=== PATIENT | female | born 1965 | race Caucasian/White ===

== ENCOUNTER 2020-05-04 22:44 | Emergency (ER) | payer MEDICARE, OTHER ==
[~2020-05-04] VITALS: Ht 165.1 cm; Wt 97.0 kg
--- NOTE | 2020-05-04 22:50 | PHYS DOC ---
Past History Past Medical History: Anxiety, Arthritis, COPD, Fibromyalgia, Other Past Medical History MS, neuropathic pain, peripheral neuropathy Past Surgical History: Smoking: Cigarettes Alcohol Use: None Drug Use: None General Adult HPI: HPI: ".. She said she was feeling like she had a fever yesterday...but to night.. we heard at thump.. and she was on the floor.. She would not say what hurts.. just keep yelling.." ".. She had problems with her MS.. it been getting worse the last three years.. ( ) Patient is a 54 year old female who presents with hx fell out of bed reportedly prior arrival. Pt. mental status change since fall. Yelling, thrashing on the cot. Patient had left temporal contusion. The patient required restraints and eventual sedation and intubation for CT evaluation. Patient has history of MS and has had progressive deterioration. Patient history of gait problems secondary to MS, severe peripheral neuropath. Patient has had issues with urinary retention and overflow incontinence. Patient does smoke. Has history of chronic pain and narcotic dependent. Patient has also past history of Lyme disease. The patient normally follows with Dr. Eileen Crowley. Review of Systems: Review of Systems: Review of systems limited due to patient's mental status Constitutional: History of fever or chills Musculoskeletal: History of chronic pain and gait disorder Neurologic: Hx. chronic neuropathic pain secondary to MS Psychiatric: Hx. depression or anxiety Family History: Family History: Noncontributory to presentation Current Medications: Current Meds: See nursing for home meds Allergies: Allergies: Allergies Coded Allergies Type Severity Reaction Last Updated Verified amoxicillin Allergy Intermediate Rash 07/30/14 Yes Physical Exam: PE: Constitutional: in acute distress, HENT: Normocephalic, contusion left side of forehead, bilateral external ears normal, oropharynx moist, no oral exudates, nose rhinorrhea Eyes: PERRLA, EOMI, conjunctiva mild injection, no discharge. [] Neck: . Trachea midline Cardiovascular: Tachycardia heart rate regular rhythm, PMI to the left Lungs & Thorax: Bilateral breath sounds equal apex with rhonchi and crackles on auscultation [] Abdomen: Bowel sounds decreased, distended, old pelvic surgery scar Skin: Warm, diaphoretic, no erythema, no rash. [] Extremities: Moving all extremities kicking or thrashing, ankle edema. [] Neurologic: Withdraws to noxious stimuli. Appears to be moving all extremities. Yelling. Garbled speech and grunts EKG: EKG: My interpretation of EKG 76 bpm. No findings acute STEMI of contralateral changes [] Radiology/Procedures: Radiology/Procedures: IMAGING REPORT Signed PATIENT: KAREEM KENNEDY: [id number] : 1965 LOCATION: ER AGE: 54 SEX: F EXAM STATUS: REG ER ORD. PHYSICIAN: BRANDON BLOCK MD REASON: dyspnea PROCEDURE: PORTABLE CHEST 1V Study: CR PORTABLE CHEST 1V Indication: Dyspnea. Comparison: None. Findings: Endotracheal tube tip terminates 2 to 3 cm above the emily. Enteric tube tip is within the stomach. The sidehole is approximately 2 cm above the diaphragm. Upper limits of normal cardiomediastinal silhouette though accentuated by AP technique. No overt central vascular congestion. No lobar consolidation, large effusion or pneumothorax. Bilateral breast implants. Impression: 1. Endotracheal tube tip 2 to 3 cm above the emily. Enteric tube tip is within the stomach but the sidehole is within the esophagus approximately 2 cm above the diaphragm. 2. No findings of an organizing pneumonia or overt CHF/volume overload. Electronically signed by: HERON LAYNE MD (05/05/2020 12:51 AM) [id number] DICTATED AND SIGNED BY: HERON LAYNE MD DATE: 05/05/20 005 CC: BRANDON BLOCK MD; LEONELA CARBONE ~ [][place] [id number] IMAGING REPORT Signed PATIENT: KAREEM KENNEDY: [id number] : 1965 LOCATION: ER AGE: 54 SEX: F EXAM STATUS: REG ER ORD. PHYSICIAN: BRANDON BLOCK MD REASON: fALL,HEAD CONTUSION AND MENTAL STATUS CHANGE PROCEDURE: CT HEAD AND CERVICAL SPINE WO STUDY: CT head and cervical spine without contrast INDICATION: Fall. Head contusion. Mental status change. COMPARISON: None. TECHNIQUE: Axial CT imaging through the head and cervical spine without the use of intravenous contrast. Sagittal and coronal reformats were obtained. One or more of the following individualized dose reduction techniques were utilized for this examination: 1. Automated exposure control 2. Adjustment of the mA and/or kV according to patient size 3. Use of iterative reconstruction technique. FINDINGS: CT head: No acute intracranial hemorrhage. Horton-white matter differentiation is maintained. No localized mass effect, midline shift or hydrocephalus. Nonspecific patchy hypoattenuation within the bihemispheric subcortical white matter, best appreciated within both frontal lobes such as on image 19 series 2. No depressed calvarial fracture. No hemorrhage within the paranasal sinuses or mastoid air cells. CT cervical spine: No acute fracture or traumatic malalignment. Degenerative changes at the atlantodental interface. Discogenic arthrosis greatest at C5-C6. No severe osseous central canal or neural foraminal stenosis. No soft tissue sequela of trauma seen throughout the chest. Endotracheal and orogastric intubation. No apical pneumothorax. IMPRESSION: CT head: 1. No acute intracranial abnormality by CT. 2. Mild patchy low-attenuation within the bihemispheric subcortical white matter is nonspecific but most frequently on account of chronic microvascular ischemic change. 3. In the setting of intubation, if there is failure to improve clinically MRI could be performed to better evaluate for any pathology occult by CT. CT cervical spine: 1. No acute fracture or traumatic malalignment. 2. Scattered degenerative changes without severe osseous central canal or neural foraminal stenosis. Electronically signed by: HERON LAYNE MD (05/05/2020 2:15 AM) [id number] DICTATED AND SIGNED BY: HERON LAYNE MD DATE: 05/05/20 0215 CC: BRANDON BLOCK MD; LEONELA CARBONE ~ Heart Score: HEART Score for Chest Pain: HEART Score for Chest Pain Response (Comments) Value History Slighlty/Non-Suspicious 0 ECG Normal 0 Age >45 - < 65 1 Risk Factors 1 or 2 Risk Factors 1 Troponin < Normal Limit 0 Total 2 Risk Factors: Risk Factors: DM, Current or recent (<one month) smoker, HTN, HLP, family history of CAD, obesity. Risk Scores: Score 0 - 3: 2.5% MACE over next 6 weeks - Discharge Home Score 4 - 6: 20.3% MACE over next 6 weeks - Admit for Clinical Observation Score 7 - 10: 72.7% MACE over next 6 weeks - Early Invasive Strategies Course & Med Decision Making: Course & Med Decision Making Pertinent Labs and Imaging studies reviewed. (See chart for details) Critical Care 90 min. Procedure Note: Intubation-patient's sedated with Versed 2 mg, 100mg lidocaine, succinylcholine 100 mg and propofol titrated. Use glide scope 7.0 ET placed 22 cm at teeth. CO2 change. No breath sounds over stomach. Breath sounds equal at apex. Tube secured. OG then placed to decompress stomach. Vent titration for sats and reduction in CO2. OG reposition lower after CXR. Central line- Attempt x 2 Rt femoral-. Sterile technique.-Unable to pass to line over wire. Attempts x2. I/O-placed right humeral head-after Betadine prep. For emergent IV access Calls to multiple hospitals no beds currently available at [facility] , [facility], , at [facility]. Bed became available at [facility]- Report given to Dr. Guzman. However- ICU bed taken by another pt. prior to transport. Bed became available at [facility]- Report given to SUNDAY Mims, pt. accepted to Dr. Sheridan service. Pt. awaiting transport- at shift change. Pt. endorsed to Dr. Ramirez pending transfer. Impression: 1. Hx. Fall 2. Acute Mental Status Change 3. Hx. MS 4. Respiratory Failure- Hypercarbia 5. SIRs vs Sepsis 6. Leukocytosis 27.8 7. Hypernatreia 150 8. Dehydration Bun 23/creat. 2.3 9. DM - glu 198 10. Elevated D-Dimer 1.75 11.Hx Chronic Pain- Narcotic dependent 12. UTI [Pt. endorse to Dr. Ramirez pending transfer to [facility]] Gerda Disclaimer: Gerda Disclaimer: This electronic medical record was generated, in whole or in part, using a voice recognition dictation system. Departure Departure: Referrals: LEONELA CARBONE (PCP) Gerda Disclaimer This chart was dictated in whole or in part using Voice Recognition software in a busy, high-work load, and often noisy Emergency Department environment. It may contain unintended and wholly unrecognized errors or omissions. Gerda Disclaimer This chart was dictated in whole or in part using Voice Recognition software in a busy, high-work load, and often noisy Emergency Department environment. It may contain unintended and wholly unrecognized errors or omissions. BRANDON BLOCK MD May 04, 2020 22:49
[2020-05-04] MEDS ORDERED: MIDAZOLAM HCL PF 5 MG/5 ML VIAL. ONE (23:03)
[2020-05-04] MEDS ORDERED: diphenhydrAMINE 50 MG/ML VIAL IV ONE (23:30)
[2020-05-04] MEDS ORDERED: OLANZapine IM 10 MG VIAL. IM ONE (23:30)
[2020-05-04] MEDS ORDERED: MIDAZOLAM HCL PF 5 MG/5 ML VIAL. IV ONE (23:30)
[2020-05-04] MEDS ORDERED: IV RINGERS SOLUTION,LACTATED 1,000 ML IV SCH (23:30)
[2020-05-04 23:34] LABS: BASO # 0.2 x10^3/uL (0.0-0.2); BASO % 1 % (0-3); EOS # 0.8 x10^3/uL (0.0-0.7); EOS % 3 % (0-3); HEMATOCRIT 45.5 % (36.0-47.0); HEMOGLOBIN 14.7 g/dL (12.0-15.5); LYMPH # 10.5 x10^3/uL (1.0-4.8); LYMPH % 38 % (24-48); MEAN CORPUSCULAR HEMOGLOBIN 36 pg (25-35); MEAN CORPUSCULAR HGB CONC 32 g/dL (31-37); MEAN CORPUSCULAR VOLUME 110 fL (79-100); MONO # 2.1 x10^3/uL (0.0-1.1); MONO % 7 % (0-9); NEUT # 14.3 x10^3uL (1.8-7.7); NEUT % 51 % (31-73); PLATELET COUNT 320 x10^3/uL (140-400); RED BLOOD COUNT 4.15 x10^6/uL (3.50-5.40); RED CELL DISTRIBUTION WIDTH 16.4 % (11.5-14.5); WHITE BLOOD COUNT 27.8 x10^3/uL (4.0-11.0)
[2020-05-04 23:39] LABS: CALCIUM 9.5 mg/dL (8.5-10.1); CREATININE 2.3 mg/dL (0.6-1.0); GFR 22.1; POTASSIUM 4.2 mmol/L (3.5-5.1)
[2020-05-04] MEDS ORDERED: PROPOFOL 100 ML IV ONE (23:40)
[2020-05-04 23:51] LABS: ALBUMIN 4.2 g/dL (3.4-5.0); C REACTIVE PROTEIN 9.3 mg/L (0-3.3); DIRECT BILIRUBIN 0.3 mg/dL (0.0-0.2); MAGNESIUM 2.2 mg/dL (1.8-2.4); TOTAL BILIRUBIN 0.6 mg/dL (0.2-1.0); TOTAL PROTEIN 7.9 g/dL (6.4-8.2)
[2020-05-05 00:01] LABS: % BANDS 7 % (0-9); % EOS 1 % (0-5); % LYMPHS 43 % (24-48); % MONOS 4 % (0-10); % SEGS 45 % (35-66); PLT ESTIMATE ADEQUATE (ADEQUATE)
[2020-05-05] MEDS ORDERED: SUCCINYLCHOLINE 200 MG/10 ML VIAL. ONE (00:08)
--- NOTE | 2020-05-05 00:54 | RAD ---
Study: CR PORTABLE CHEST 1V Indication: Dyspnea. Comparison: None. Findings: Endotracheal tube tip terminates 2 to 3 cm above the emily. Enteric tube tip is within the stomach. The sidehole is approximately 2 cm above the diaphragm. Upper limits of normal cardiomediastinal silhouette though accentuated by AP technique. No overt central vascular congestion. No lobar consolidation, large effusion or pneumothorax. Bilateral breast implants. Impression: 1. Endotracheal tube tip 2 to 3 cm above the emily. Enteric tube tip is within the stomach but the sidehole is within the esophagus approximately 2 cm above the diaphragm. 2. No findings of an organizing pneumonia or overt CHF/volume overload. Electronically signed by: HERON LAYNE MD (05/05/2020 12:51 AM) [id number]
[2020-05-05] MEDS ORDERED: methylPREDNISolone SOD SUCC PF 125 MG/2 ML VIAL. IV ONE (01:30)
[2020-05-05 01:59] LABS: BARBITURATES NEG (NEG); BENZODIAZEPINES POS (NEG); CANNABINOIDS NEG (NEG); COCAINE NEG (NEG); METHADONE NEG (NEG); OPIATES NEG (NEG); PHENCYCLIDINE NEG (NEG)
[2020-05-05 02:00] LABS: BILIRUBIN,URINE NEG (NEG); CLARITY,URINE HAZY; COLOR,URINE YELLOW; GLUCOSE,URINE NEG (NEG); NITRITE,URINE NEG (NEG); UROBILINOGEN,URINE 0.2 mg/dL (0.2 mg/dL)
[2020-05-05 02:01] LABS: BACTERIA,URINE MANY /HPF (0-FEW); WBC,URINE >40 /HPF (0-4)
[2020-05-05 02:04] LABS: AMPHETAMINE/METHAMPHETAMINE NEG (NEG)
[2020-05-05] MEDS ORDERED: IV NORMAL SALINE 100ML 100 ML ONE (02:04)
--- NOTE | 2020-05-05 02:18 | RAD ---
STUDY: CT head and cervical spine without contrast INDICATION: Fall. Head contusion. Mental status change. COMPARISON: None. TECHNIQUE: Axial CT imaging through the head and cervical spine without the use of intravenous contrast. Sagittal and coronal reformats were obtained. One or more of the following individualized dose reduction techniques were utilized for this examination: 1. Automated exposure control 2. Adjustment of the mA and/or kV according to patient size 3. Use of iterative reconstruction technique. FINDINGS: CT head: No acute intracranial hemorrhage. Horton-white matter differentiation is maintained. No localized mass effect, midline shift or hydrocephalus. Nonspecific patchy hypoattenuation within the bihemispheric subcortical white matter, best appreciated within both frontal lobes such as on image 19 series 2. No depressed calvarial fracture. No hemorrhage within the paranasal sinuses or mastoid air cells. CT cervical spine: No acute fracture or traumatic malalignment. Degenerative changes at the atlantodental interface. Discogenic arthrosis greatest at C5-C6. No severe osseous central canal or neural foraminal stenosis. No soft tissue sequela of trauma seen throughout the chest. Endotracheal and orogastric intubation. No apical pneumothorax. IMPRESSION: CT head: 1. No acute intracranial abnormality by CT. 2. Mild patchy low-attenuation within the bihemispheric subcortical white matter is nonspecific but most frequently on account of chronic microvascular ischemic change. 3. In the setting of intubation, if there is failure to improve clinically MRI could be performed to better evaluate for any pathology occult by CT. CT cervical spine: 1. No acute fracture or traumatic malalignment. 2. Scattered degenerative changes without severe osseous central canal or neural foraminal stenosis. Electronically signed by: HERON LAYNE MD (05/05/2020 2:15 AM) [facility]
[2020-05-05] MEDS ORDERED: IV RINGERS SOLUTION,LACTATED 1,000 ML IV ONE (02:30)
[2020-05-05 02:45] LABS: BGAS PH 7.29 (7.35-7.45)
[2020-05-05] MEDS ORDERED: IV NORMAL SALINE 1,000ML 1,000 ML IV ONE ×2 (03:00)
[2020-05-05] MEDS ORDERED: ENOXAPARIN ** NOTE DOSE ** SYRINGE SQ ONE (03:15)
[2020-05-05] MEDS ORDERED: FAMOTIDINE 20 MG/2 ML VIAL IVP ONE (04:30)
[2020-05-05 04:50] LABS: BGAS PH 7.29 (7.35-7.45)
--- NOTE | 2020-05-05 05:48 | EKG ---
[facility] ED [facility] [place] [id number] Test Date: 2020-05-05 Test Time: 01:11:24 Pat Name: KAREEM KENNEDY Department: Room: Gender: F Movement Education Specialist: : 1965 Requested By: BRANDON BLOCK Order Number: [id number] Reading MD: Measurements Intervals [place] Rate: 76 P: 52 [place]: 158 QRS: 36 QRSD: 94 T: 51 QT: 392 QTc: 445 Interpretive Statements SINUS RHYTHM NORMAL ECG RI6.02 No previous ECG available for comparison
[2020-05-05] MEDS ORDERED: IV RINGERS SOLUTION,LACTATED 1,000 ML IV STA (05:55)
[2020-05-05] MEDS ORDERED: IV RINGERS SOLUTION,LACTATED 1,000 ML IV SCH (06:15)
[2020-05-05 06:21] VITALS: BP 151/96
[2020-05-05] MEDS ORDERED: MIDAZOLAM HCL PF 5 MG/5 ML VIAL. ONE (08:36)
[2020-05-05] MEDS ORDERED: MIDAZOLAM HCL PF 5 MG/5 ML VIAL. IV ONE (08:45)
== END 2020-05-05 10:34 | disposition short-term general hospital (02) ==
LOC: ER 22:44
DX: J96.92 Respiratory failure, unspecified with hypercapnia (principal); D72.829 Elevated white blood cell count, unspecified; E87.0 Hyperosmolality and hypernatremia; E86.0 Dehydration; E11.9 Type 2 diabetes mellitus without complications; R79.1 Abnormal coagulation profile; G89.29 Other chronic pain; R41.82 Altered mental status, unspecified; F41.9 Anxiety disorder, unspecified; M19.90 Unspecified osteoarthritis, unspecified site; J44.9 Chronic obstructive pulmonary disease, unspecified; M79.7 Fibromyalgia; G35 Multiple sclerosis; F17.210 Nicotine dependence, cigarettes, uncomplicated; Z91.81 History of falling; Z98.890 Other specified postprocedural states; Z87.440 Personal history of urinary (tract) infections; Z88.1 Allergy status to other antibiotic agents
CPT/HCPCS: 31500; 36415; 36556; 36600; 51702; 70450; 71045; 72125; 80048; 80076; 80307; 81001; 82550; 82803; 83605; 83690; 83735; 83880; 84443; 84484; 85007; 85025; 85379; 85610; 85730; 86140; 86141; 87040; 87086; 93005; 96361; 96365; 96372; 96375; 99291; 99292; J0696; J1200; J1650; J2930; J3490; J7030; J7120; 87077; 87186

== ENCOUNTER → 2020-07-28 | Outpatient (CLI) | payer OTHER, MEDICARE ==
--- NOTE | 2020-07-28 17:08 | RAD ---
PROCEDURE: XR FOOT_RIGHT 3 VIEWS STUDY DATE: 07/28/2020 CLINICAL INDICATION / HISTORY: Reason: FOOT PAIN / Spl. Instructions: / History: . Patient fell TECHNIQUE: Right foot 3 views in the AP, oblique and lateral projections COMPARISON: None FINDINGS: Normal mineralization osseous alignment. There are lucencies through the base of the second and third metatarsals best appreciated on the AP and oblique views that are suspicious for nondisplaced acute extra-articular fractures of the proximal metaphyses. Soft tissues show moderate swelling on the dorsum of the right forefoot. IMPRESSION: Acute nondisplaced fractures of the second and third metatarsal bases with normal alignment. If there is concern for possible Lisfranc injury, MRI of the right foot could be pursued in further evaluatio n. Report telephoned to the ordering provider Dr. Vanessa Delong at 4:58 PM on 07/28/2020. Electronically signed by: Porfirio Casarez MD (07/28/2020 5:05 PM) [id number]
== END ==
LOC: RAD 15:58
PROVIDERS: ATTEND Orthopaedic Surgery
DX: S92.321A Displaced fracture of second metatarsal bone, right foot, initial encounter for closed fracture (principal); S92.331A Displaced fracture of third metatarsal bone, right foot, initial encounter for closed fracture; X58.XXXA Exposure to other specified factors, initial encounter; Y93.89 Activity, other specified; Y92.89 Other specified places as the place of occurrence of the external cause; Y99.8 Other external cause status
CPT/HCPCS: 73630

== ENCOUNTER → 2020-09-01 | Outpatient (CLI) | payer OTHER, MEDICARE ==
--- NOTE | 2020-09-01 16:40 | RAD ---
EXAM: Right foot, 3 views. HISTORY: Pain. Fracture follow-up. COMPARISON: 07/28/2020. FINDINGS: 3 views of the right foot are obtained. There has been minimal interval callus formation johnson rrounding a minimally displaced fractures involving the proximal second and third metatarsals. There is also periosteal reaction adjacent to the base of the first metatarsal which may be due to a healin g nondisplaced fracture. There is stable prominence of the joint space between the medial and middle cuneiforms. There is enthesopathy at Achilles tendon insertion. There is dorsal forefoot soft tissue swelling. IMPRESSION: Suspected minimal interval healing of a displaced proximal second and third metatarsal fr actures and a possible healed or healing nondisplaced proximal first metatarsal fracture. Note is mad e that MRI may be useful if this concern for an associated Lisfranc injury. Electronically signed by: Draa Martinez MD (09/01/2020 4:37 PM) [id number]
== END ==
LOC: RAD 15:57
PROVIDERS: ATTEND Orthopaedic Surgery
DX: L84 Corns and callosities (principal)
CPT/HCPCS: 73630